=== PATIENT | female | born 1985 | race Two or more races ===

== ENCOUNTER 2020-04-06 08:30 | Inpatient (IN) | payer OTHER ==
[~2020-04-06] VITALS: Ht 172.7 cm; Wt 108.4 kg
[2020-04-14] MEDS ORDERED: MEGESTROL ACETA40 MG PO (08:23)
[2020-04-15] MEDS ORDERED: IBUPROFEN800 MG PO (06:55)
[2020-04-15] MEDS ORDERED: SIMETHICONE125 M1 PO (06:55)
[2020-04-15] MEDS ORDERED: POLY119PG PO (06:55)
[2020-04-15] MEDS ORDERED: FAMOTIDINE20 MG PO (06:55)
[2020-04-15] MEDS ORDERED: NEURONTIN600 MG PO (06:55)
== END 2020-04-15 08:00 | disposition home or self-care (01) | DRG 743 ==
LOC: O/R 04-13 05:00 → RECOVERY 04-13 08:30 → OB/GYN 04-13 15:32
PROVIDERS: ADMIT Obstetrics & Gynecology; ATTEND Obstetrics & Gynecology
PROC: 0UT90ZZ Resection of Uterus, Open Approach (ICD-10-PCS; principal; 2020-04-13 08:30)
DX: N72 Inflammatory disease of cervix uteri (principal); N80.0 Endometriosis of uterus

== ENCOUNTER 2022-04-26 10:11 | Emergency (ER) | payer OTHER ==
[~2022-04-26] VITALS: Ht 172.7 cm; Wt 111.6 kg
[~2022-04-26 10:11] MED LIST: FAMOTIDINE20 MG PO; IBUPROFEN800 MG PO; MEGESTROL ACETA40 MG PO; NEURONTIN600 MG PO; POLY119PG PO; SIMETHICONE125 M1 PO
== END 2022-04-26 16:43 | disposition home or self-care (01) ==
LOC: ER 10:11
DX: R59.1 Generalized enlarged lymph nodes (principal); Z88.0 Allergy status to penicillin; Z88.8 Allergy status to other drugs, medicaments and biological substances

== ENCOUNTER 2023-06-15 22:24 | Emergency (ER) | payer OTHER ==
[~2023-06-15] VITALS: Ht 172.7 cm; Wt 109.8 kg
[2023-06-16 00:16] LABS: HEMATOCRIT 39.4 % (36.0-45.00); MEAN CELL VOLUME 89.8 fL (80.00-100.00); MEAN CORPUSCULAR HEMOGLOBIN 29.5 pg (27.00-32.0); MEAN CORPUSCULAR HGB CONC 32.9 g/dl (32.0-36.0); PLATELET COUNT 193 K/uL (150-450); RED BLOOD COUNT 4.39 M/uL (4.00-6.00); RED CELL DISTRIBUTION WIDTH 14.3 % (11.5-14.5)
[2023-06-16 00:49] LABS: ALBUMIN 3.1 gm/dL (3.4-5.0); BILIRUBIN TOTAL 0.34 mg/dL (0.3-1.2); CALCIUM 8.5 mg/dL (8.5-10.1); CREATININE SERUM 0.68 mg/dL (0.55-1.02); GFR 95.83; GLOBULINA 4.2 G/DL (2.4-3.5); POTASSIUM 3.83 mEq/L (3.5-5.1); TOTAL PROTEIN 7.3 gm/dL (6.4-8.2)
[2023-06-16 02:10] LABS: PH,URINE 6.5 (5.0-8.0); URINE APPEARANCE Cloudy; URINE BACTERIA 2411.5 uL (0.0-1933); URINE BILIRRUBIN Negative (NEGATIVE); URINE BLOOD Negative; URINE COLOR Yellow; URINE GLUCOSE Negative (NEGATIVE); URINE LEUKOCYTE Trace; URINE NITRATE Negative; URINE PROTEIN Negative (NEGATIVE); URINE RBC 42.1 uL (0.0-20.8); URINE WBC 90.2 uL (0.0-23.2)
== END 2023-06-16 05:09 | disposition home or self-care (01) ==
LOC: ER 22:25
PROVIDERS: General Practice
DX: K57.92 Diverticulitis of intestine, part unspecified, without perforation or abscess without bleeding (principal); R10.2 Pelvic and perineal pain; Z88.0 Allergy status to penicillin; Z16.23 Resistance to quinolones and fluoroquinolones
CPT/HCPCS: 36415; 74177; Q9965